=== PATIENT | male | born 1990 | race Caucasian/White ===

== ENCOUNTER 2017-09-30 19:24 | Emergency (ER) | payer OTHER ==
[2017-09-30 19:24] VITALS: O2SAT 100
[2017-09-30] MEDS ORDERED: ceFAZolin 2 GM PREMIX 50 ML ONE (19:29)
[2017-09-30] MEDS ORDERED: DIPHTH/TETANUS/ACEL PERTUSSIS (BOOSTER) 0.5 ML VIAL/PFS IM ONE ×2 (19:29→22:09)
[2017-09-30] MEDS ORDERED: ONDANSETRON HCL 4 MG/2 ML VIAL ONE (19:32)
[2017-09-30] MEDS ORDERED: IOHEXOL 350 MG/ML 10 ML VIAL (for RAD DIAG) IVCONTRAST ONE (19:43)
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
[2017-09-30 19:48] LABS: AUTOMATED NEUTROPHIL # 6.4 TH/MM3 (1.8-7.7); BASOPHIL # 0.1 TH/MM3 (0-0.2); BASOPHIL % 0.7 % (0.0-2.0); EOSINOPHIL # 0.1 TH/MM3 (0-0.4); EOSINOPHIL % 0.7 % (0.0-4.0); HEMATOCRIT 42.4 % (39.0-51.0); HEMOGLOBIN 14.6 GM/DL (13.0-17.0); LYMPH % 22.2 % (9.0-44.0); LYMPHOCYTE # 2.1 TH/MM3 (1.0-4.8); MEAN CELL VOLUME 86.9 FL (80.0-100.0); MEAN CORPUSCULAR HEMOGLOBIN 29.9 PG (27.0-34.0); MEAN CORPUSCULAR HGB CONC 34.4 % (32.0-36.0); MEAN PLATELET VOLUME 8.2 FL (7.0-11.0); MONOCYTE # 0.8 TH/MM3 (0-0.9); NEUT % 68.4 % (16.0-70.0); PLATELET COUNT 289 TH/MM3 (150-450); RED BLOOD COUNT 4.88 MIL/MM3 (4.50-5.90); RED CELL DISTRIBUTION WIDTH 13.4 % (11.6-17.2); WHITE BLOOD COUNT 9.3 TH/MM3 (4.0-11.0)
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
[2017-09-30] MEDS ORDERED: HYDROmorphone HCL PF 2 MG/ML VIAL ONE (19:58)
[2017-09-30 20:02] LABS: INTERNATIONAL NORMALIZED RATIO 1.1 RATIO; PROTHROMBIN TIME - PATIENT 11.3 SEC (9.8-11.6)
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
[2017-09-30 20:36] VITALS: BP 152/92; PULSE 91; RESP 18; O2SAT 99
[2017-09-30 20:37] VITALS: RESP 18
[2017-09-30] MEDS ORDERED: ceFAZolin 2 GM PREMIX 50 ML IV STA (22:09)
[2017-09-30] MEDS ORDERED: ONDANSETRON HCL 4 MG/2 ML VIAL IV PUSH ONE (22:15)
[2017-09-30] MEDS ORDERED: SODIUM CHLOR 0.9% 1000 ML INJ 1,000 ML IV ONE (22:15)
[2017-09-30] MEDS ORDERED: HYDROmorphone HCL PF 1 MG/ML VIAL IV PUSH ONE (22:15)
[2017-09-30] MEDS ORDERED: HYDROmorphone HCL PF 2 MG/ML VIAL IV PUSH ONE (23:00)
[2017-09-30 23:02] VITALS: BP 141/85; PULSE 91; RESP 16; O2SAT 97
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
[2017-10-01 01:49] VITALS: BP_SYST 140; BP_SYST 146; BP_SYST 181; BP_DIAS 101; BP_DIAS 93; BP_DIAS 98; RESP 16; RESP 20
[2017-10-01 01:51] LABS: AUTOMATED NEUTROPHIL # 13.2 TH/MM3 (1.8-7.7); BASOPHIL # 0.1 TH/MM3 (0-0.2); BASOPHIL % 0.6 % (0.0-2.0); HEMATOCRIT 40.9 % (39.0-51.0); LYMPH % 5.3 % (9.0-44.0); LYMPHOCYTE # 0.8 TH/MM3 (1.0-4.8); MEAN CELL VOLUME 87.4 FL (80.0-100.0); MEAN CORPUSCULAR HGB CONC 34.3 % (32.0-36.0); MEAN PLATELET VOLUME 8.3 FL (7.0-11.0); MONO % 8.1 % (0.0-8.0); MONOCYTE # 1.2 TH/MM3 (0-0.9); PLATELET COUNT 243 TH/MM3 (150-450); RED BLOOD COUNT 4.68 MIL/MM3 (4.50-5.90); RED CELL DISTRIBUTION WIDTH 13.3 % (11.6-17.2); WHITE BLOOD COUNT 15.4 TH/MM3 (4.0-11.0)
[2017-10-01 02:06] LABS: ALBUMIN 4.2 GM/DL (3.4-5.0); ALT (GPT) 22 U/L (12-78); AST (GOT) 42 U/L (15-37); BICARBONATE 28.4 MEQ/L (21.0-32.0); BLOOD UREA NITROGEN 12 MG/DL (7-18); CALCIUM 8.8 MG/DL (8.5-10.1); CHLORIDE 102 MEQ/L (98-107); CREATININE 1.18 MG/DL (0.60-1.30); GLOMERULAR FILTRATION RATE 53 ML/MIN (>89); GLUCOSE,RANDOM 161 MG/DL (74-106); SODIUM (NA) 139 MEQ/L (136-145)
[2017-10-01 02:08] LABS: ALKALINE PHOSPHATASE 79 U/L (45-117); TOTAL BILIRUBIN ADULT 0.6 MG/DL (0.2-1.0); TOTAL PROTEIN 7.7 GM/DL (6.4-8.2)
[2017-10-01] MEDS ORDERED: BACITRACIN TOP OINT 15 GM TUBE TOPICAL ONE (02:45)
--- NOTE | 2017-10-01 03:23 | RADRPT ---
EXAM DATE/TIME: 10/01/2017 02:37 [facility] COMPARISON: No previous studies available for comparison. INDICATIONS : Patient complains of left hand pain at 3rd MCPJ status post [facility]. MEDICAL HISTORY : None. SURGICAL HISTORY : None. ENCOUNTER: Initial ACUITY: 1 day PAIN SCORE: 8/10 LOCATION: Left Hand FINDINGS: Three view examination of the left hand demonstrates linear lucency through the proximal and mid diap hysis of the third metacarpal, only identified on the frontal projection. Old fracture deformity of t he fifth metacarpal CONCLUSION: 1. Apparent nondisplaced fracture through the proximal and mid diaphysis of the third metacarpal, onl y identified on the frontal projection. 2. Old fracture deformity of the fifth metacarpal. Augusto Steven MD on October 01, 2017 at 3:20 Board Certified Radiologist. This report was verified electronically.
[2017-10-01 05:05] VITALS: BP 153/91; PULSE 85; RESP 16; O2SAT 98
[2017-10-01] MEDS ORDERED: BACI500O9 TOPICAL (06:06)
[2017-10-01] MEDS ORDERED: HYDR-4107 PO (06:06)
[2017-10-01] MEDS ORDERED: IBUP-232 PO (06:09)
== END 2017-10-01 06:46 | disposition home or self-care (01) ==
LOC: EDBD 19:24 → NEPI 19:24 → NEPE 10-01 06:46
DX: S62.353A Nondisplaced fracture of shaft of third metacarpal bone, left hand, initial encounter for closed fracture (principal); S06.9X9A Unspecified intracranial injury with loss of consciousness of unspecified duration, initial encounter; S00.01XA Abrasion of scalp, initial encounter; V86.56XA Driver of dirt bike or motor/cross bike injured in nontraffic accident, initial encounter; Y93.89 Activity, other specified; Y92.39 Other specified sports and athletic area as the place of occurrence of the external cause; Z23 Encounter for immunization
CPT/HCPCS: 29125; 70450; 70486; 71045; 71260; 72125; 72170; 73130; 74177; 80048; 80053; 85025; 85610; 85730; 86850; 86900; 86901; 90471; 90715; 96374; 96375; 96376; 99291; J1170; L0150; Q9967; G0390; J0690; J2405